=== PATIENT | male | born 1970 | race Two or more races ===

== ENCOUNTER 2021-02-05 15:16 | Outpatient (RCR) | payer BC, SELFPAY ==
[2021-02-05] MEDS: COVID-19 VACC, MRNA(PFIZER)/PF 30 MCG/0.3 ML SYRINGE IM (09:08)
[2021-02-26] MEDS: COVID-19 VACC, MRNA(PFIZER)/PF 30 MCG/0.3 ML SYRINGE IM (09:01)
== END 2021-02-05 23:59 ==
LOC: IMMUN 15:16
PROVIDERS: Visit Provider Family Medicine
DX: Z23 Encounter for immunization (principal)
CPT/HCPCS: 0001A; 0002A; 91300